=== PATIENT | female | born 1930 | race Caucasian/White ===

== ENCOUNTER 2019-08-12 12:02 | Inpatient (IN) | payer MEDICARE, OTHER ==
[~2019-08-12] VITALS: Ht 165.1 cm; Wt 56.0 kg
[2019-08-12 12:48] LABS: BASOPHILS % (AUTO) 0.2 % (0-1); EOSINOPHILS % (AUTO) 0 % (0-6); HEMATOCRIT 36.3 % (35.0-45.0); HEMOGLOBIN 12.4 g/dl (12.0-16.0); LYMPHOCYTES # (AUTO) 0.9 X10'3 (1.1-4.8); LYMPHOCYTES % (AUTO) 3.8 % (21-51); MEAN CORPUSCULAR HGB CONC 34.2 g/dL (33.0-36.5); MEAN CORPUSCULAR VOLUME 93.6 FL (78-98); MEAN PLATELET VOLUME 9.4 FL (7.4-10.4); MONOCYTES # (AUTO) 2.1 X10'3 (0-0.9); MONOCYTES % (AUTO) 8.7 % (2-12); NEUTROPHILS # (AUTO) 20.9 X10'3 (1.8-7.7); NEUTROPHILS % (AUTO) 87.3 % (42-75); PLATELET COUNT 260 X10'3 (140-440); RED BLOOD COUNT 3.88 X10'6 (4.20-5.60); RED CELL DISTRIBUTION WIDTH 12.9 % (11.5-14.5); WHITE BLOOD COUNT 23.9 X10'3 (4.5-11.0)
[2019-08-12 13:00] LABS: ALANINE AMINOTRANSFERASE 13 U/L (12-78); ALBUMIN 3.2 G/DL (3.4-5.0); ALBUMIN/GLOBULIN RATIO 0.8 (1.1-1.5); ALKALINE PHOSPHATASE 89 IU/L (46-116); ANION GAP 9 (8-16); ASPARTATE AMINO TRANSFERASE 17 U/L (10-37); BLOOD UREA NITROGEN 26 MG/DL (7-18); BUN/CREATININE RATIO 21.3 (6.6-38.0); CALCIUM 9.4 MG/DL (8.5-10.1); CHLORIDE 97 MMOL/L (99-107); CREATININE 1.22 MG/DL (0.40-0.90); GLUCOSE 131 MG/DL (70-104); POTASSIUM 3.7 MMOL/L (3.5-5.1); SODIUM 132 MMOL/L (135-145); TOTAL CARBON DIOXIDE 25.6 MMOL/L (24-32); eGFR 42 ML/MIN
[2019-08-12 13:17] LABS: CLARITY,URINE SLIGHTLY CLOUDY (Clear); COLOR,URINE YELLOW (Yellow); GLUCOSE, URINE NEGATIVE (Neg); KETONES,URINE TRACE mg/dl (Neg); LEUKOCYTE ESTERASE ,URINE LARGE (Neg); NITRITES, URINE NEGATIVE (Neg); OCCULT BLOOD,URINE SMALL (Neg); PROTEIN,URINE 100 mg/dl (Neg); UROBILINOGEN,URINE 0.2 E.U/dL (0.2-1.0)
[2019-08-12 13:19] LABS: UA COLLECTION TYPE CLN CATCH MIDSTREAM
[2019-08-12 13:34] LABS: BACTERIA,URINE 3+ /HPF (Neg); SQUAMOUS EPITHELIAL CELL,UR FEW /LPF (FEW)
[2019-08-12 13:35] LABS: WBC CLUMPS,URINE MODERATE /HPF (NEGATIVE)
[2019-08-12 13:36] LABS: HYALINE CASTS 0-3 /LPF (NEGATIVE); RBC,URINE 0-2 /HPF (0-2); WBC,URINE 50-100 /HPF (0-4)
[2019-08-12] MEDS ORDERED: normal saline 1000ML IV soln IV ONE (13:55)
[2019-08-12] MEDS ORDERED: CefTRIAXone 2gm/D5W 50ml 50 ML IV ONE (13:55)
[2019-08-12] MEDS ORDERED: ATOR10TA70 PO (15:08)
[2019-08-12] MEDS ORDERED: magnesium 4gm in 100ml NS 100 ML IV PRN (15:15)
[2019-08-12] MEDS ORDERED: potassium CL 10mEq/100ml bag 100 ML IV PRN ×2 (15:15)
[2019-08-12] MEDS ORDERED: magnesium 2GM in 50ml NS 50 ML IV PRN (15:15)
[2019-08-12] MEDS ORDERED: ondansetron/PF 4mg/2ml inj IV PRN (15:15)
[2019-08-12] MEDS ORDERED: potassium Cl 20 mEq SR tablet PO PRN (15:15)
[2019-08-12] MEDS ORDERED: acetaminophen 325mg tablet PO PRN (15:15)
[2019-08-12] MEDS ORDERED: magnesium Cl slow-release 64mg tablet PO PRN (15:15)
[2019-08-12 15:19] LABS: PLATELET ESTIMATE NORMAL; TOTAL CELLS COUNTED 100
[2019-08-12] MEDS ORDERED: POTA10CA44 PO (15:20)
[2019-08-12] MEDS ORDERED: METO-384 PO (15:20)
[2019-08-12] MEDS ORDERED: DESV50TA PO (15:20)
[2019-08-12] MEDS ORDERED: MECL-111 PO (15:20)
[2019-08-12] MEDS ORDERED: LEVO88TA7 PO (15:20)
[2019-08-12] MEDS ORDERED: BUPR300T54 PO (15:20)
[2019-08-12] MEDS ORDERED: HYDR25TA4 PO (15:20)
[2019-08-12] MEDS ORDERED: RISP0.5T3 PO (15:20)
[2019-08-12] MEDS ORDERED: ALPR-623 PO (15:20)
[2019-08-12] MEDS ORDERED: CELE200C PO (15:20)
[2019-08-12] MEDS ORDERED: NIFE90TA48 PO (15:22)
[2019-08-12 15:26] LABS: TOXIC GRANULATION 2+; TOXIC VACUOLATION FEW
[2019-08-12] MEDS: normal saline 1000ml 1,000 ML IV SCH (16:06)
[2019-08-12] MEDS: levoFLOXACIN-Levaquin 500mg/D5 100 ML IV SCH (16:06)
[2019-08-12] MEDS ORDERED: ALPRAZolam 0.25mg tablet PO ONE (16:50)
--- NOTE | 2019-08-12 17:07 | NUR ---
PTS FAMILY STATES PT USUALLY TAKES XANAX TID AND SHE HAS NOT HAD ANY. NOTIFIED DR GARNER VERBAL ORDER FOR XANAX TAKEN. XANAX GIVEN TO PT. PT PLACED ON BED SANTIAGO 300ML DARK CLOUDY URINE. PT REPOSITIONED AND COLD H2O PROVIDED
--- NOTE | 2019-08-12 17:15 | NUR ---
Report received from ED RN, Tanika.
--- NOTE | 2019-08-12 17:40 | NUR ---
Pt arrived to room 349A from ED
[2019-08-12 17:50] VITALS: BP 129/69
--- NOTE | 2019-08-12 18:20 | NUR ---
Problems reprioritized. Patient report given, questions answered & plan of care reviewed with Rashida RN.
[2019-08-12 19:30] VITALS: BP 111/67
[2019-08-12] MEDS: docusate sod 100mg capsule PO SCH (19:55)
[2019-08-12] MEDS: heparin, porcine 5000 units/ml vial SQ SCH (19:56)
[2019-08-13] VITALS: BP 109/54
[2019-08-13 05:05] LABS: BASOPHILS % (AUTO) 0.1 % (0-1); EOSINOPHILS % (AUTO) 0.1 % (0-6); HEMATOCRIT 37.9 % (35.0-45.0); HEMOGLOBIN 12.7 g/dl (12.0-16.0); LYMPHOCYTES # (AUTO) 1.1 X10'3 (1.1-4.8); LYMPHOCYTES % (AUTO) 4.9 % (21-51); MEAN CORPUSCULAR HEMOGLOBIN 31.6 PG (27.0-31.0); MEAN CORPUSCULAR HGB CONC 33.6 g/dL (33.0-36.5); MEAN CORPUSCULAR VOLUME 94.2 FL (78-98); MEAN PLATELET VOLUME 10.1 FL (7.4-10.4); MONOCYTES # (AUTO) 1.6 X10'3 (0-0.9); MONOCYTES % (AUTO) 6.8 % (2-12); NEUTROPHILS # (AUTO) 20.1 X10'3 (1.8-7.7); NEUTROPHILS % (AUTO) 88.1 % (42-75); PLATELET COUNT 242 X10'3 (140-440); RED BLOOD COUNT 4.03 X10'6 (4.20-5.60); WHITE BLOOD COUNT 22.8 X10'3 (4.5-11.0)
[2019-08-13 05:21] LABS: ANION GAP 12 (8-16); BLOOD UREA NITROGEN 21 MG/DL (7-18); BUN/CREATININE RATIO 18.1 (6.6-38.0); CALCIUM 9.4 MG/DL (8.5-10.1); CHLORIDE 97 MMOL/L (99-107); CHOL/HDL RATIO 2.2 (0.00-4.99); CHOLESTEROL 119 MG/DL (0-200); CREATININE 1.16 MG/DL (0.40-0.90); GLUCOSE 100 MG/DL (70-104); HDL CHOLESTEROL 53 MG/DL (35-60); LDL CHOLESTEROL 60 MG/DL (50-100); MAGNESIUM 1.7 MG/DL (1.5-2.4); POTASSIUM 3.3 MMOL/L (3.5-5.1); SODIUM 131 MMOL/L (135-145); TOTAL CARBON DIOXIDE 22.4 MMOL/L (24-32); TRIGLYCERIDES 81 MG/DL (20-135); eGFR 44 ML/MIN
--- NOTE | 2019-08-13 06:59 | NUR ---
Patient in room [facility]. I have received report from KATHRINE Field and had the opportunity to ask questions and assume patient care.
[2019-08-13] MEDS: potassium Cl 20 mEq SR tablet PO PRN ×3 (07:28→15:29)
[2019-08-13] MEDS: heparin, porcine 5000 units/ml vial SQ SCH ×2 (07:28→20:13)
[2019-08-13] MEDS: levoFLOXACIN-Levaquin 500mg/D5 100 ML IV SCH (07:28)
[2019-08-13] MEDS: docusate sod 100mg capsule PO SCH ×2 (07:28→20:12)
[2019-08-13 08:00] VITALS: BP 130/67
[2019-08-13] MEDS: K and/or MAG REPLACEMENT MC SCH (08:00)
[2019-08-13] MEDS ORDERED: meclizine 12.5mg tablet PO PRN (08:45)
--- NOTE | 2019-08-13 10:00 | NUR ---
pt. has been unable to urinate on her own. bladder scan showed 454 cc. was able to talk to MD and got order for straight cath. and pyridium BID
[2019-08-13 11:00] VITALS: BP 137/71
[2019-08-13] MEDS: risperiDONE 0.5mg tablet PO SCH (11:26)
[2019-08-13] MEDS: metoprolol succinate 25mg (24-HOUR) SR. Tablet PO SCH (11:26)
[2019-08-13] MEDS: NIFEdipine XL 30mg tablet PO SCH (11:27)
[2019-08-13] MEDS: levoTHYROXINE 88mcg tablet PO SCH (11:27)
--- NOTE | 2019-08-13 11:40 | NUR ---
Bladder scanned patient after patient was incontinent and bladder scan showed 398ml's in bladder. Addendum: 08/13/19 at 1140 by Cecelia Marks RN Primary RN Aydee granados
[2019-08-13] MEDS: venlafaxine 25mg tablet PO SCH ×2 (15:30→20:12)
[2019-08-13] MEDS: normal saline 1000ml 1,000 ML IV SCH (15:30)
--- NOTE | 2019-08-13 17:20 | NUR ---
MD reyesayed taking pt. off 24 hr tele monitoring.
[2019-08-13] MEDS: phenazopyridine 100mg tablet PO SCH (18:33)
--- NOTE | 2019-08-13 18:42 | NUR ---
Received report from Aydee CHISHOLM, family at bedside assisting with dinner
[2019-08-13 19:00] VITALS: BP 131/61
--- NOTE | 2019-08-13 19:28 | NUR ---
Problems reprioritized. Patient report given, questions answered & plan of care reviewed with KATHRINE Seals.
--- NOTE | 2019-08-13 19:33 | NUR ---
Student documentation: I have reviewed and agree with all interventions, assessments performed and documented by NADIRA Heaton.
[2019-08-13] MEDS: buPROPion SR 150mg tablet PO SCH (20:12)
[2019-08-13] MEDS: lactobacillus rhamnosus 10,000 MMU CELLS/CAPSULE PO SCH (20:13)
--- NOTE | 2019-08-13 21:54 | NUR ---
bladder scanned pt had 281 in bladder, have existing orders to straight cath if greater than 400 will check again at a later time
[2019-08-14 00:15] VITALS: BP 134/70
--- NOTE | 2019-08-14 00:45 | NUR ---
pt had 460mL in bladder upon bladder scan, followed [facility] nursing order straight cath patient had 275mL of orange urine, will continue to monitor
--- NOTE | 2019-08-14 05:07 | NUR ---
bladder scanned pt had 333 in bladder
[2019-08-14 05:27] LABS: ALBUMIN 2.9 G/DL (3.4-5.0); ANION GAP 16 (8-16); BLOOD UREA NITROGEN 17 MG/DL (7-18); BUN/CREATININE RATIO 19.3 (6.6-38.0); CALCIUM 9.4 MG/DL (8.5-10.1); CHLORIDE 97 MMOL/L (99-107); CREATININE 0.88 MG/DL (0.40-0.90); GLUCOSE 90 MG/DL (70-104); MAGNESIUM 1.5 MG/DL (1.5-2.4); POTASSIUM 3.6 MMOL/L (3.5-5.1); SODIUM 132 MMOL/L (135-145); TOTAL CARBON DIOXIDE 18.9 MMOL/L (24-32); eGFR 61 ML/MIN
[2019-08-14 05:28] LABS: BASOPHILS % (AUTO) 0.2 % (0-1); EOSINOPHILS % (AUTO) 0.1 % (0-6); HEMATOCRIT 38.8 % (35.0-45.0); HEMOGLOBIN 13.1 g/dl (12.0-16.0); LYMPHOCYTES # (AUTO) 0.6 X10'3 (1.1-4.8); LYMPHOCYTES % (AUTO) 4.8 % (21-51); MEAN CORPUSCULAR HEMOGLOBIN 31.6 PG (27.0-31.0); MEAN CORPUSCULAR HGB CONC 33.8 g/dL (33.0-36.5); MEAN CORPUSCULAR VOLUME 93.4 FL (78-98); MEAN PLATELET VOLUME 10.1 FL (7.4-10.4); MONOCYTES % (AUTO) 7.1 % (2-12); NEUTROPHILS # (AUTO) 11.8 X10'3 (1.8-7.7); NEUTROPHILS % (AUTO) 87.8 % (42-75); PLATELET COUNT 265 X10'3 (140-440); RED BLOOD COUNT 4.16 X10'6 (4.20-5.60); RED CELL DISTRIBUTION WIDTH 12.9 % (11.5-14.5); WHITE BLOOD COUNT 13.5 X10'3 (4.5-11.0)
--- NOTE | 2019-08-14 06:08 | NUR ---
Gave report to parish CHISHOLM pt is awake on RA, in no apparent distress, bed alarm on.
[2019-08-14 07:00] VITALS: BP 138/66
[2019-08-14] MEDS: lactobacillus rhamnosus 10,000 MMU CELLS/CAPSULE PO SCH ×2 (07:25→20:00)
[2019-08-14] MEDS: levoTHYROXINE 88mcg tablet PO SCH (07:25)
[2019-08-14] MEDS: atorvastatin 10mg tablet PO SCH (07:25)
[2019-08-14] MEDS: celeCOXIB 100mg capsule PO SCH (07:26)
[2019-08-14] MEDS: buPROPion SR 150mg tablet PO SCH ×2 (07:26→20:00)
[2019-08-14] MEDS: risperiDONE 0.5mg tablet PO SCH (07:26)
[2019-08-14] MEDS: docusate sod 100mg capsule PO SCH ×2 (07:26→20:00)
[2019-08-14] MEDS: venlafaxine 25mg tablet PO SCH ×3 (07:26→21:00)
[2019-08-14] MEDS: NIFEdipine XL 30mg tablet PO SCH (07:27)
[2019-08-14] MEDS: metoprolol succinate 25mg (24-HOUR) SR. Tablet PO SCH (07:27)
[2019-08-14] MEDS: phenazopyridine 100mg tablet PO SCH ×2 (07:27→17:36)
[2019-08-14] MEDS: heparin, porcine 5000 units/ml vial SQ SCH ×2 (07:28→20:19)
[2019-08-14] MEDS: levoFLOXACIN-Levaquin 750MG/D5 150 ML IV SCH (07:29)
[2019-08-14] MEDS: K and/or MAG REPLACEMENT MC SCH (08:00)
--- NOTE | 2019-08-14 10:14 | NUR ---
Osorio catheter inserted on 08/14 at 1000 per protocol, pt. tolerated the procedure well. Procedure was overseen by Manuel legal instructor. 10mL water was inserted into the balloon. Osorio was 16 gauge and was secured to right leg. There was immediate urine output. Urine was orange color due to pyridium.
[2019-08-14 11:00] VITALS: BP 107/58
[2019-08-14] MEDS: normal saline 1000ml 1,000 ML IV SCH (11:57)
--- NOTE | 2019-08-14 17:58 | NUR ---
pt becoming increasingly agitated and wanting to get up to go to the bathroom. Pt moved to room 359B with all belongings. Daughter in law, Imelda, notified. Addendum: 08/14/19 at 1817 by Aimee Padilla RN Pt moved at 2369
[2019-08-14 18:00] VITALS: BP 102/52
--- NOTE | 2019-08-14 18:54 | NUR ---
page to Dr Jesu Spann [facility] [address] please call [facility] regarding anti-anxiety medications on med rec. Thank you Addendum: 08/14/19 at 1856 by Aimee Padilla RN Phone call to cell phone made, prior to page, with no answer.
--- NOTE | 2019-08-14 18:55 | NUR ---
Problems reprioritized. Patient report given, questions answered & plan of care reviewed with KATHRINE Spann.
[2019-08-14] MEDS: ALPRAZolam 0.25mg tablet PO SCH (21:00)
[2019-08-15] VITALS: BP 125/64
[2019-08-15] MEDS: normal saline 1000ml 1,000 ML IV SCH ×2 (03:15→23:15)
[2019-08-15 06:17] LABS: BASOPHILS # (AUTO) 0.1 X10'3 (0-0.2); BASOPHILS % (AUTO) 0.6 % (0-1); EOSINOPHILS % (AUTO) 0.5 % (0-6); HEMATOCRIT 39.7 % (35.0-45.0); HEMOGLOBIN 13.7 g/dl (12.0-16.0); LYMPHOCYTES # (AUTO) 0.8 X10'3 (1.1-4.8); LYMPHOCYTES % (AUTO) 10.5 % (21-51); MEAN CORPUSCULAR HEMOGLOBIN 31.8 PG (27.0-31.0); MEAN CORPUSCULAR HGB CONC 34.5 g/dL (33.0-36.5); MEAN CORPUSCULAR VOLUME 92.1 FL (78-98); MEAN PLATELET VOLUME 9.8 FL (7.4-10.4); MONOCYTES # (AUTO) 0.9 X10'3 (0-0.9); MONOCYTES % (AUTO) 11.4 % (2-12); NEUTROPHILS # (AUTO) 6.1 X10'3 (1.8-7.7); PLATELET COUNT 297 X10'3 (140-440); RED BLOOD COUNT 4.31 X10'6 (4.20-5.60); RED CELL DISTRIBUTION WIDTH 13.1 % (11.5-14.5)
[2019-08-15 06:29] LABS: ALBUMIN 2.6 G/DL (3.4-5.0); ANION GAP 10 (8-16); BLOOD UREA NITROGEN 12 MG/DL (7-18); BUN/CREATININE RATIO 17.4 (6.6-38.0); CALCIUM 8.5 MG/DL (8.5-10.1); CHLORIDE 102 MMOL/L (99-107); CREATININE 0.69 MG/DL (0.40-0.90); GLUCOSE 97 MG/DL (70-104); MAGNESIUM 1.4 MG/DL (1.5-2.4); POTASSIUM 3.1 MMOL/L (3.5-5.1); SODIUM 135 MMOL/L (135-145); TOTAL CARBON DIOXIDE 22.6 MMOL/L (24-32); eGFR 81 ML/MIN
[2019-08-15 06:30] VITALS: BP 156/85
--- NOTE | 2019-08-15 06:40 | NUR ---
Patient in room [facility]. I have received report from KATHRINE Spann and had the opportunity to ask questions and assume patient care.
--- NOTE | 2019-08-15 06:44 | NUR ---
report given to KATHRINE Carpio
[2019-08-15] MEDS: K and/or MAG REPLACEMENT MC SCH (07:18)
[2019-08-15] MEDS: docusate sod 100mg capsule PO SCH ×2 (08:00→19:23)
[2019-08-15] MEDS: phenazopyridine 100mg tablet PO SCH ×2 (09:12→17:19)
[2019-08-15] MEDS: celeCOXIB 100mg capsule PO SCH (09:13)
[2019-08-15] MEDS: NIFEdipine XL 30mg tablet PO SCH (09:13)
[2019-08-15] MEDS: lactobacillus rhamnosus 10,000 MMU CELLS/CAPSULE PO SCH ×2 (09:13→20:31)
[2019-08-15] MEDS: ALPRAZolam 0.25mg tablet PO SCH ×3 (09:13→20:31)
[2019-08-15] MEDS: buPROPion SR 150mg tablet PO SCH ×2 (09:14→20:31)
[2019-08-15] MEDS: potassium Cl 20 mEq SR tablet PO PRN ×3 (09:14→17:20)
[2019-08-15] MEDS: levoTHYROXINE 88mcg tablet PO SCH (09:14)
[2019-08-15] MEDS: venlafaxine 25mg tablet PO SCH ×3 (09:14→20:31)
[2019-08-15] MEDS: atorvastatin 10mg tablet PO SCH (09:14)
[2019-08-15] MEDS: metoprolol succinate 25mg (24-HOUR) SR. Tablet PO SCH (09:15)
[2019-08-15] MEDS: heparin, porcine 5000 units/ml vial SQ SCH ×2 (09:15→20:33)
[2019-08-15] MEDS: risperiDONE 0.5mg tablet PO SCH (09:34)
[2019-08-15 11:00] VITALS: BP 109/60
[2019-08-15] MEDS ORDERED: magnesium 4gm in 100ml NS 100 ML IV PRN (17:05)
[2019-08-15] MEDS ORDERED: potassium CL 10mEq/100ml bag 100 ML IV PRN (17:05)
[2019-08-15] MEDS ORDERED: magnesium Cl slow-release 64mg tablet PO PRN (17:05)
[2019-08-15] MEDS ORDERED: potassium Cl 20 mEq SR tablet PO PRN (17:05)
[2019-08-15] MEDS ORDERED: magnesium 2GM in 50ml NS 50 ML IV PRN (17:05)
[2019-08-15 18:00] VITALS: BP 115/66
--- NOTE | 2019-08-15 18:20 | NUR ---
Problems reprioritized. Patient report given, questions answered & plan of care reviewed with KATHRINE Spann.
--- NOTE | 2019-08-15 18:24 | NUR ---
Report received from KATHRINE Carpio
[2019-08-16] VITALS: BP 117/69
--- NOTE | 2019-08-16 06:20 | NUR ---
Patient in room [facility]. I have received report from KATHRINE Spann and had the opportunity to ask questions and assume patient care.
--- NOTE | 2019-08-16 06:28 | NUR ---
report given to Lisa Carpio
[2019-08-16 06:30] VITALS: BP 146/80
[2019-08-16] MEDS: docusate sod 100mg capsule PO SCH ×2 (06:52→20:43)
[2019-08-16] MEDS: ALPRAZolam 0.25mg tablet PO SCH ×3 (07:55→20:43)
[2019-08-16] MEDS: phenazopyridine 100mg tablet PO SCH ×2 (07:55→17:52)
[2019-08-16] MEDS: lactobacillus rhamnosus 10,000 MMU CELLS/CAPSULE PO SCH ×2 (07:55→20:42)
[2019-08-16] MEDS: atorvastatin 10mg tablet PO SCH (07:55)
[2019-08-16] MEDS: venlafaxine 25mg tablet PO SCH ×3 (07:55→20:41)
[2019-08-16] MEDS: celeCOXIB 100mg capsule PO SCH (07:56)
[2019-08-16] MEDS: levoTHYROXINE 88mcg tablet PO SCH (07:56)
[2019-08-16] MEDS: heparin, porcine 5000 units/ml vial SQ SCH ×2 (07:56→20:45)
[2019-08-16] MEDS: levoFLOXACIN-Levaquin 750MG/D5 150 ML IV SCH (07:56)
[2019-08-16] MEDS: metoprolol succinate 25mg (24-HOUR) SR. Tablet PO SCH (07:56)
[2019-08-16] MEDS: NIFEdipine XL 30mg tablet PO SCH (07:56)
[2019-08-16] MEDS: buPROPion SR 150mg tablet PO SCH ×2 (07:56→20:43)
[2019-08-16 10:31] LABS: BASOPHILS # (AUTO) 0.1 X10'3 (0-0.2); BASOPHILS % (AUTO) 0.9 % (0-1); EOSINOPHILS # (AUTO) 0.2 X10'3 (0-0.9); HEMATOCRIT 41.7 % (35.0-45.0); LYMPHOCYTES # (AUTO) 1.5 X10'3 (1.1-4.8); LYMPHOCYTES % (AUTO) 18.6 % (21-51); MEAN CORPUSCULAR HEMOGLOBIN 31.5 PG (27.0-31.0); MEAN CORPUSCULAR HGB CONC 33.6 g/dL (33.0-36.5); MEAN CORPUSCULAR VOLUME 93.9 FL (78-98); MEAN PLATELET VOLUME 9.1 FL (7.4-10.4); MONOCYTES # (AUTO) 0.9 X10'3 (0-0.9); MONOCYTES % (AUTO) 11.1 % (2-12); NEUTROPHILS # (AUTO) 5.4 X10'3 (1.8-7.7); NEUTROPHILS % (AUTO) 67.4 % (42-75); PLATELET COUNT 327 X10'3 (140-440); RED BLOOD COUNT 4.44 X10'6 (4.20-5.60); RED CELL DISTRIBUTION WIDTH 13.3 % (11.5-14.5)
[2019-08-16 10:39] LABS: ALBUMIN 2.3 G/DL (3.4-5.0); ANION GAP 7 (8-16); BLOOD UREA NITROGEN 12 MG/DL (7-18); BUN/CREATININE RATIO 17.9 (6.6-38.0); CALCIUM 8.5 MG/DL (8.5-10.1); CHLORIDE 107 MMOL/L (99-107); CREATININE 0.67 MG/DL (0.40-0.90); GLUCOSE 83 MG/DL (70-104); MAGNESIUM 1.6 MG/DL (1.5-2.4); POTASSIUM 3.7 MMOL/L (3.5-5.1); SODIUM 137 MMOL/L (135-145); TOTAL CARBON DIOXIDE 23.5 MMOL/L (24-32); eGFR 83 ML/MIN
[2019-08-16] MEDS: K and/or MAG REPLACEMENT MC SCH (10:47)
[2019-08-16 11:00] VITALS: BP 107/56
[2019-08-16] MEDS ORDERED: LEVO500T89 PO (11:04)
[2019-08-16 18:00] VITALS: BP 113/59
--- NOTE | 2019-08-16 18:20 | NUR ---
Problems reprioritized. Patient report given, questions answered & plan of care reviewed with KATHRINE Nieves.
[2019-08-16] MEDS: acetaminophen 325mg tablet PO PRN (18:41)
--- NOTE | 2019-08-16 18:57 | NUR ---
Patient in room [facility]. I have received report from KATHRINE Carpio and had the opportunity to ask questions and assume patient care.
[2019-08-16] MEDS: normal saline 1000ml 1,000 ML IV SCH (20:46)
[2019-08-16] MEDS ORDERED: risperiDONE 0.5mg tablet PO SCH (21:00)
[2019-08-17] VITALS: BP 120/74
[2019-08-17 05:31] LABS: BASOPHILS % (AUTO) 0.6 % (0-1); EOSINOPHILS # (AUTO) 0.2 X10'3 (0-0.9); EOSINOPHILS % (AUTO) 2.5 % (0-6); HEMATOCRIT 39.5 % (35.0-45.0); HEMOGLOBIN 13.3 g/dl (12.0-16.0); LYMPHOCYTES # (AUTO) 1.6 X10'3 (1.1-4.8); MEAN CORPUSCULAR HEMOGLOBIN 31.4 PG (27.0-31.0); MEAN CORPUSCULAR HGB CONC 33.6 g/dL (33.0-36.5); MEAN CORPUSCULAR VOLUME 93.6 FL (78-98); MEAN PLATELET VOLUME 8.8 FL (7.4-10.4); MONOCYTES # (AUTO) 0.9 X10'3 (0-0.9); MONOCYTES % (AUTO) 11.1 % (2-12); NEUTROPHILS # (AUTO) 5.1 X10'3 (1.8-7.7); NEUTROPHILS % (AUTO) 65.8 % (42-75); PLATELET COUNT 319 X10'3 (140-440); RED BLOOD COUNT 4.23 X10'6 (4.20-5.60); RED CELL DISTRIBUTION WIDTH 13.1 % (11.5-14.5); WHITE BLOOD COUNT 7.8 X10'3 (4.5-11.0)
[2019-08-17 05:32] LABS: ALBUMIN 2.4 G/DL (3.4-5.0); ANION GAP 10 (8-16); BLOOD UREA NITROGEN 11 MG/DL (7-18); BUN/CREATININE RATIO 14.9 (6.6-38.0); CALCIUM 8.8 MG/DL (8.5-10.1); CHLORIDE 105 MMOL/L (99-107); CREATININE 0.74 MG/DL (0.40-0.90); GLUCOSE 90 MG/DL (70-104); MAGNESIUM 1.6 MG/DL (1.5-2.4); POTASSIUM 3.4 MMOL/L (3.5-5.1); SODIUM 139 MMOL/L (135-145); TOTAL CARBON DIOXIDE 24.1 MMOL/L (24-32); eGFR 74 ML/MIN
[2019-08-17 06:30] VITALS: BP 154/76
--- NOTE | 2019-08-17 06:35 | NUR ---
Patient in room [facility]. I have received report from KATHRINE Nieves and had the opportunity to ask questions and assume patient care.
--- NOTE | 2019-08-17 06:44 | NUR ---
Problems reprioritized. Patient report given, questions answered & plan of care reviewed with KATHRINE Carpio.
[2019-08-17] MEDS: K and/or MAG REPLACEMENT MC SCH (07:03)
[2019-08-17] MEDS: lactobacillus rhamnosus 10,000 MMU CELLS/CAPSULE PO SCH (10:20)
[2019-08-17] MEDS: atorvastatin 10mg tablet PO SCH (10:20)
[2019-08-17] MEDS: buPROPion SR 150mg tablet PO SCH (10:20)
[2019-08-17] MEDS: ALPRAZolam 0.25mg tablet PO SCH ×2 (10:20→13:58)
[2019-08-17] MEDS: celeCOXIB 100mg capsule PO SCH (10:21)
[2019-08-17] MEDS: levoTHYROXINE 88mcg tablet PO SCH (10:21)
[2019-08-17] MEDS: venlafaxine 25mg tablet PO SCH ×2 (10:21→13:57)
[2019-08-17] MEDS: NIFEdipine XL 30mg tablet PO SCH (10:21)
[2019-08-17] MEDS: heparin, porcine 5000 units/ml vial SQ SCH (10:22)
[2019-08-17] MEDS: docusate sod 100mg capsule PO SCH (10:22)
[2019-08-17] MEDS: metoprolol succinate 25mg (24-HOUR) SR. Tablet PO SCH (10:22)
[2019-08-17] MEDS: acetaminophen 325mg tablet PO PRN (10:24)
[2019-08-17] MEDS: potassium Cl 20 mEq SR tablet PO PRN ×2 (11:24→15:15)
[2019-08-17 12:24] VITALS: BP 127/59
--- NOTE | 2019-08-17 13:53 | NUR ---
Initial: Pt admitted for generalized weakness and UTI sepsis. Pt is eating poorly, PO intake averaging 25-50% the last two days, likely not meeting nutrient needs. LBM 08/17. Skin intact, no edema. Pt with discharge orders, per RN d/c this afternoon, awaiting transport. Recommendation: 1. continue heart healthy diet, encourage PO intake. 2. Bowel care as needed 3. weight per rx Addendum: 08/17/19 at 1353 by Wing Judy VICTOR Amended: Links added. Addendum: 08/17/19 at [address] KAYLEIGH Duque
[2019-08-17] MEDS ORDERED: acetaminophen 325mg tablet PO ONE (14:15)
--- NOTE | 2019-08-17 15:36 | NUR ---
DC inst provided to pt's daughter, Imelda. IV DC'd, tip intact. All belongings sent w/daughter. WC by [facility].
--- NOTE | 2019-08-17 17:09 | NUR ---
reviewed nursing administrator charting
[2019-08-18] MEDS ORDERED: levoFLOXACIN 750MG TABLET PO SCH (08:00)
== END 2019-08-17 15:36 | DRG 871 ==
LOC: ER 12:03 → ED HOLD 15:15 → SUR 3N 17:38
PROVIDERS: ADMIT Internal Medicine; ATTEND Family Medicine
DX: A41.9 Sepsis, unspecified organism (principal); G93.41 Metabolic encephalopathy; N17.0 Acute kidney failure with tubular necrosis; E87.1 Hypo-osmolality and hyponatremia; N39.0 Urinary tract infection, site not specified; B96.20 Unspecified Escherichia coli [E. coli] as the cause of diseases classified elsewhere; E03.9 Hypothyroidism, unspecified; E78.00 Pure hypercholesterolemia, unspecified; E78.5 Hyperlipidemia, unspecified; E86.0 Dehydration; W18.39XA Other fall on same level, initial encounter; M50.30 Other cervical disc degeneration, unspecified cervical region; E87.6 Hypokalemia; R33.9 Retention of urine, unspecified; F03.90 Unspecified dementia, unspecified severity, without behavioral disturbance, psychotic disturbance, mood disturbance, and anxiety; F32.9 Major depressive disorder, single episode, unspecified; I10 Essential (primary) hypertension; Z66 Do not resuscitate; Z79.899 Other long term (current) drug therapy; Y93.89 Activity, other specified; Y92.89 Other specified places as the place of occurrence of the external cause; Y99.8 Other external cause status; Z88.2 Allergy status to sulfonamides; Z88.1 Allergy status to other antibiotic agents
CPT/HCPCS: 36415; 71045; 72040; 80048; 80053; 80061; 81001; 83735; 84145; 85025; 87077; 87081; 87088; 87186; 93005; 96365; 97110; 97112; 97116; 97161; 97530; 99285; G0378; J0696; J1644; J1956; J7030